=== PATIENT | female | born 2000 | race American Indian/Alaskan Native ===

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

== ENCOUNTER 2021-12-24 17:22 | Emergency (ER) | payer OTHER ==
[2021-12-24] MEDS ORDERED: SODIUM CHLORIDE 0.9% 1000 ML IV SOLN IV ONE (22:49)
[2021-12-24] MEDS ORDERED: ONDANSETRON 4 MG/2 ML INJ IV ONE (22:49)
[2021-12-24] MEDS ORDERED: MORPHINE 4 MG/1 ML INJ IV STA (22:51)
[2021-12-24] MEDS ORDERED: HYOSCYAMINE SUBL 0.125 MG TAB SL ONE (22:51)
--- NOTE | 2021-12-24 22:57 | Emergency Department Report ---
ED N/V/D HPI - General Chief complaint: Nausea/Vomiting/Diarrhea Stated complaint: VOMITING/NAUSEA/DIARRHEA Time Seen by Provider: 12/24/21 22:45 Source: patient Mode of arrival: Ambulatory Limitations: No Limitations - History of Present Illness Initial comments: 21-year-old -[place] female with no significant past medical history presents emerged department complaining of a 1+ week history of progressively worsening abdominal discomfort to the lower abdomen and mid mid gastric area associated with nausea and vomiting but no diarrhea [place] what appears to be constipation as he is not having bowel movements since the onset. She states that she has not been ingesting a lot of food which also may be the culprit. No fever, chills, sweats, hemoptysis, hematemesis hematochezia, dysuria, hematuria. MD complaint: nausea, vomiting, abdominal pain -: Gradual Description of Vomiting: food contents, watery Severity: mild Quality: cramping, aching Consistency: constant Improves with: none Worsens with: none Associated Symptoms: denies other symptoms, fever/chills, loss of appetite, malaise, nausea/vomiting. denies: chest pain, cough, rash, dysuria - Related Data Previous Rx's Medication Instructions Recorded Last Taken Type Famotidine [Pepcid] 20 mg PO BID #30 tablet 05/01/18 Unknown Rx Ibuprofen [Motrin] 600 mg PO Q8H PRN #30 tablet 05/01/18 Unknown Rx Ondansetron [Zofran TAB] 4 mg PO Q8HR PRN #20 tablet 05/01/18 Unknown Rx Sulfamethoxazole/Trimethoprim 1 each PO BID #14 tablet 05/01/18 Unknown Rx [Bactrim DS TAB] Promethazine [Phenergan] 25 mg PO Q6HR PRN #10 tab 09/03/18 Unknown Rx raNITIdine HCl [Acid Control] 150 mg PO BID 30 Days #60 tablet 09/03/18 Unknown Rx Hyoscyamine Subl [Levsin Sl 0.125 0.125 mg SL Q6HR PRN #20 tab 12/25/21 Unknown Rx TAB] Omeprazole 40 mg PO DAILY #30 12/25/21 Unknown Rx Ondansetron [Zofran ODT TAB] 8 mg PO Q12HR #14 tab.rapdis 12/25/21 Unknown Rx Allergies Allergy/AdvReac Type Severity Reaction Status Date / Time No Known Allergies Allergy Unverified 05/01/18 17:47 ED Review of Systems ROS: Stated complaint: VOMITING/NAUSEA/DIARRHEA Other details as noted in HPI Comment: All other systems reviewed and negative ED Past Medical Hx - Past Medical History Additional medical history: Hypotension, Gastritis - Social History Smoking Status: Never Smoker Substance Use Type: Alcohol, Marijuana - Medications Home Medications: Home Medications Medication Instructions Recorded Confirmed Last Taken Type Famotidine [Pepcid] 20 mg PO BID #30 tablet 05/01/18 Unknown Rx Ibuprofen [Motrin] 600 mg PO Q8H PRN #30 tablet 05/01/18 Unknown Rx Ondansetron [Zofran TAB] 4 mg PO Q8HR PRN #20 tablet 05/01/18 Unknown Rx Sulfamethoxazole/Trimethoprim 1 each PO BID #14 tablet 05/01/18 Unknown Rx [Bactrim DS TAB] Promethazine [Phenergan] 25 mg PO Q6HR PRN #10 tab 09/03/18 Unknown Rx raNITIdine HCl [Acid Control] 150 mg PO BID 30 Days #60 tablet 09/03/18 Unknown Rx Hyoscyamine Subl [Levsin Sl 0.125 0.125 mg SL Q6HR PRN #20 tab 12/25/21 Unknown Rx TAB] Omeprazole 40 mg PO DAILY #30 12/25/21 Unknown Rx Ondansetron [Zofran ODT TAB] 8 mg PO Q12HR #14 tab.rapdis 12/25/21 Unknown Rx ED Physical Exam - General Limitations: No Limitations General appearance: alert, in no apparent distress - Head Head exam: Present: atraumatic, normocephalic - Eye Eye exam: Present: normal appearance, PERRL, EOMI - ENT ENT exam: Present: mucous membranes moist - Neck Neck exam: Present: normal inspection - Respiratory Respiratory exam: Present: normal lung sounds bilaterally. Absent: respiratory distress - Cardiovascular Cardiovascular Exam: Present: regular rate, normal rhythm. Absent: systolic murmur, diastolic murmur, rubs, gallop - GI/Abdominal GI/Abdominal exam: Present: soft, tenderness, normal bowel sounds. Absent: guarding, hyperactive bowel sounds, hypoactive bowel sounds, organomegaly, mass - Extremities Exam Extremities exam: Present: normal inspection - Back Exam Back exam: Present: normal inspection - Neurological Exam Neurological exam: Present: alert, oriented X3 - Psychiatric Psychiatric exam: Present: normal affect, normal mood - Skin Skin exam: Present: warm, dry, intact, normal color. Absent: rash ED Course Vital Signs 12/24/21 12/25/21 18:11 02:41 Temperature 98.0 F Pulse Rate 97 H 52 L Respiratory 20 14 Rate Blood Pressure 147/92 105/59 [Right] O2 Sat by Pulse 99 100 Oximetry ED Medical Decision Making - Lab Data Result diagrams: 12/24/21 22:58 12/24/21 22:58 - Radiology Data Radiology results: report reviewed [facility] [address] [place] [address] XRay Report Signed Patient: DAVINA BARNES MR#: [id number] : 2000 Acct:[id number] Age/Sex: 21 / F ADM Date: 12/24/21 Loc: ED Attending Dr: Ordering Physician: KASSIDY VELA Date of Service: 12/25/21 Procedure(s): XR abd series w cxr 1V Accession Number(s): [id number] cc: KASSIDY VELA Fluoro Time In Minutes: XR abd series w cxr 1V INDICATION / CLINICAL INFORMATION: constipation abd pain COMPARISON: None available. TECHNIQUE: Flat and erect images of the abdomen with additional AP view of the chest. FINDINGS: Nonobstructive bowel gas pattern. No free air. No specific abnormality of the chest. IMPRESSION: 1. Nonobstructive bowel gas pattern. No acute findings within the chest. Signer Name: Ros French II, MD Signed: 12/25/2021 1:48 AM Workstation Name: [id number] Transcribed By: MEGA Dictated By: ROS FRENCH II, MD Electronically Authenticated By: ROS FRENCH II, MD Signed Date/Time: 12/25/21147 DD/ 4 TD/TT: Print Cancel - Medical Decision Making This patient presents with abdominal pain of unclear etiology. Their evaluation has not identified a emergent etiology for the abdominal pain. Specifically, given the very benign exam, normal laboratory studies, and lack of significant risk factors, I have a very low suspicion for appendicitis, ischemic bowel, bowel perforation, or any other life threatening disease. I have discussed with the patient the level of uncertainty with undifferentiated abdominal pain and clearly explained the need to follow-up as noted on the discharge instructions, or return to the Emergency Department immediately if the pain worsens, develops fever, persistent and uncontrollable vomiting, or for any new symptoms or concerns. I discussed with the patient that this presentation today for abdominal pain could represent a significant risk for an acute abdominal process. Although the tests in the ED were essentially normal, there is still a possibility of a process such as appendicitis, diverticulitis, cholecystitis, ulcer, early bowel obstruction, mesenteric ischemia, kidney stone, or even kidney infection which could subsequently cause disability or . The patient understands that they must return within 24 hours for a recheck or see their physician within 24 hours for re-exam due to the possibility of significant surgical or medical process. Critical care attestation.: If time is entered above; I have spent that time in minutes in the direct care of this critically ill patient, excluding procedure time. ED Disposition Clinical Impression: Abdominal pain, Nausea & vomiting Disposition: 01 HOME / SELF CARE / HOMELESS Is pt being admited?: No Does the pt Need Aspirin: No Condition: Stable Instructions: Abdominal Pain, Adult, Nausea and Vomiting, Adult Prescriptions: Hyoscyamine Subl [Levsin Sl 0.125 TAB] 0.125 mg SL Q6HR PRN #20 tab PRN Reason: abdominal cramps and spasms Omeprazole 40 mg PO DAILY #30 Ondansetron [Zofran ODT TAB] 8 mg PO Q12HR #14 tab.marisa Referrals: [facility] [Provider Group] - 3-5 Days [facility], [Primary Care Provider] - 3-5 Days
[2021-12-24 23:19] LABS: Bacteria,Urine 4+ /HPF (Negative); Bilirubin,Urine NEG (Negative); Blood,Urine NEG (Negative); Color,Urine Yellow (Yellow); Mucus,Urine 3+ /HPF; Urobilinogen,Urine < 2.0 mg/dL (<2.0)
[2021-12-25 00:04] LABS: Basophils % (Auto) 0.5 % (0.0-1.8); Eosinophils % (Auto) 0.6 % (0.0-4.3); Hematocrit 44.9 % (30.3-42.9); Hemoglobin 15.6 gm/dl (10.1-14.3); Lymphocytes # (Auto) 2.4 K/mm3 (1.2-5.4); Lymphocytes % (Auto) 30.7 % (13.4-35.0); Mean Corpuscular HGB Conc 35 % (30-34); Mean Corpuscular Volume 93 fl (79-97); Monocytes # (Auto) 0.6 K/mm3 (0.0-0.8); Monocytes % (Auto) 7.7 % (0.0-7.3); Platelet Count 272 K/mm3 (140-440); Red Blood Count 4.84 M/mm3 (3.65-5.03); Red Cell Distribution Width 13.4 % (13.2-15.2)
[2021-12-25 00:11] LABS: Alanine Aminotransferase 14 units/L (7-56); Albumin 4.5 g/dL (3.9-5); Blood Urea Nitrogen 7 mg/dL (7-17); Calcium 9.3 mg/dL (8.4-10.2); Hemolysis Index 24
[2021-12-25 00:27] LABS: BUN/Creatinine Ratio 12
--- NOTE | 2021-12-25 01:52 | XRay Report ---
XR abd series w cxr 1V INDICATION / CLINICAL INFORMATION: constipation abd pain COMPARISON: None available. TECHNIQUE: Flat and erect images of the abdomen with additional AP view of the chest. FINDINGS: Nonobstructive bowel gas pattern. No free air. No specific abnormality of the chest. IMPRESSION: 1. Nonobstructive bowel gas pattern. No acute findings within the chest. Signer Name: Ion French II, MD Signed: 12/25/2021 1:48 AM Workstation Name: [id number]
[2021-12-25 02:42] VITALS: BP 105/59
== END 2021-12-25 02:45 | disposition home or self-care (01) ==
LOC: ED 17:22
DX: R10.9 Unspecified abdominal pain (principal); R11.2 Nausea with vomiting, unspecified; F10.20 Alcohol dependence, uncomplicated; F12.90 Cannabis use, unspecified, uncomplicated
CPT/HCPCS: 36415; 74022; 80053; 81001; 83690; 84703; 85025; 87086; 96374; 96375; 99284; J2270; J2405; J7030; Q0162

== ENCOUNTER 2022-02-14 20:13 | Emergency (ER) | payer OTHER ==
[2022-02-14] MEDS ORDERED: ONDANSETRON 4 MG ODT TAB PO ONE (20:39)
[2022-02-14 21:22] LABS: Basophils # (Auto) 0.1 K/mm3 (0.0-0.1); Basophils % (Auto) 0.6 % (0.0-1.8); Eosinophils % (Auto) 0.4 % (0.0-4.3); Hematocrit 46.6 % (30.3-42.9); Hemoglobin 16.2 gm/dl (10.1-14.3); Lymphocytes # (Auto) 3.1 K/mm3 (1.2-5.4); Lymphocytes % (Auto) 31.7 % (13.4-35.0); Mean Corpuscular HGB Conc 35 % (30-34); Mean Corpuscular Volume 91 fl (79-97); Monocytes # (Auto) 0.6 K/mm3 (0.0-0.8); Monocytes % (Auto) 6.1 % (0.0-7.3); Platelet Count 236 K/mm3 (140-440); Red Blood Count 5.14 M/mm3 (3.65-5.03); Red Cell Distribution Width 13.4 % (13.2-15.2)
[2022-02-14 21:39] LABS: Bacteria,Urine 4+ /HPF (Negative); Bilirubin,Urine NEG (Negative); Blood,Urine MOD (Negative); Color,Urine Amber (Yellow); Mucus,Urine 2+ /HPF; Protein,Urine <15 mg/dL mg/dL (Negative)
[2022-02-14 21:40] LABS: Alanine Aminotransferase 11 units/L (7-56); Albumin 4.8 g/dL (3.9-5); Blood Urea Nitrogen 8 mg/dL (7-17); Calcium 10.3 mg/dL (8.4-10.2); Hemolysis Index 28
[2022-02-14 21:45] LABS: BUN/Creatinine Ratio 13
[2022-02-15] MEDS ORDERED: SODIUM CHLORIDE 0.9% 1000 ML 1,000 ML IV ONE (00:59)
[2022-02-15] MEDS ORDERED: ONDANSETRON 4 MG/2 ML INJ IV ONE (01:00)
[2022-02-15] MEDS ORDERED: KETOROLAC 30 MG/1 ML INJ IV ONE (01:00)
--- NOTE | 2022-02-15 01:05 | Emergency Department Report ---
ED Abdominal Pain HPI - General Chief Complaint: Abdominal Pain Stated Complaint: CHEST,BACK,ABD PAIN Time Seen by Provider: 02/15/22 00:52 Source: patient Mode of arrival: Ambulatory Limitations: No Limitations - History of Present Illness Initial Comments: Is a 21-year-old female who presents for abdominal pain radiating to bilateral flanks with nausea vomiting x6 days. Patient states intermittent nausea vomiting. Pain radiates to right lateral anterior chest wall with deep cough ,cough is nonproductive. Symptoms are exacerbated by p.o. intake. Symptoms are relieved by nothing tried. Patient denies urinary frequency no dysuria no fever no chills no hematuria. There is bilateral flank tenderness. Patient denies fever. Last p.o. intake was yesterday. MD Complaint: abdominal pain - Related Data Previous Rx's Medication Instructions Recorded Last Taken Type Famotidine [Pepcid] 20 mg PO BID #30 tablet 05/01/18 Unknown Rx Ibuprofen [Motrin] 600 mg PO Q8H PRN #30 tablet 05/01/18 Unknown Rx Ondansetron [Zofran TAB] 4 mg PO Q8HR PRN #20 tablet 05/01/18 Unknown Rx Sulfamethoxazole/Trimethoprim 1 each PO BID #14 tablet 05/01/18 Unknown Rx [Bactrim DS TAB] Promethazine [Phenergan] 25 mg PO Q6HR PRN #10 tab 09/03/18 Unknown Rx raNITIdine HCl [Acid Control] 150 mg PO BID 30 Days #60 tablet 09/03/18 Unknown Rx Hyoscyamine Subl [Levsin Sl 0.125 0.125 mg SL Q6HR PRN #20 tab 12/25/21 Unknown Rx TAB] Omeprazole 40 mg PO DAILY #30 12/25/21 Unknown Rx Ondansetron [Zofran ODT TAB] 8 mg PO Q12HR #14 tab.rapdis 12/25/21 Unknown Rx cephALEXin [Keflex] 500 mg PO BID 7 Days #14 cap 02/15/22 Unknown Rx Allergies Allergy/AdvReac Type Severity Reaction Status Date / Time No Known Allergies Allergy Unverified 05/01/18 17:47 ED Review of Systems ROS: Stated complaint: CHEST,BACK,ABD PAIN Other details as noted in HPI Constitutional: malaise Eyes: denies: eye pain, eye discharge, vision change ENT: denies: ear pain, throat pain Respiratory: denies: cough, shortness of breath, wheezing Cardiovascular: chest pain (Right anterior chest wall). denies: palpitations Endocrine: no symptoms reported Gastrointestinal: abdominal pain, nausea, vomiting. denies: diarrhea, constipation, melena Genitourinary: frequency. denies: urgency, dysuria, hematuria, discharge, abnormal menses, dyspareunia Musculoskeletal: back pain (Bilateral flank pain) Skin: denies: rash, lesions Neurological: denies: headache, weakness, numbness, paresthesias, confusion, vertigo Psychiatric: denies: anxiety, depression Hematological/Lymphatic: denies: easy bleeding, easy bruising ED Past Medical Hx - Past Medical History Additional medical history: Hypotension, Gastritis - Social History Smoking Status: Never Smoker Substance Use Type: Alcohol, Marijuana - Medications Home Medications: Home Medications Medication Instructions Recorded Confirmed Last Taken Type Famotidine [Pepcid] 20 mg PO BID #30 tablet 05/01/18 Unknown Rx Ibuprofen [Motrin] 600 mg PO Q8H PRN #30 tablet 05/01/18 Unknown Rx Ondansetron [Zofran TAB] 4 mg PO Q8HR PRN #20 tablet 05/01/18 Unknown Rx Sulfamethoxazole/Trimethoprim 1 each PO BID #14 tablet 05/01/18 Unknown Rx [Bactrim DS TAB] Promethazine [Phenergan] 25 mg PO Q6HR PRN #10 tab 09/03/18 Unknown Rx raNITIdine HCl [Acid Control] 150 mg PO BID 30 Days #60 tablet 09/03/18 Unknown Rx Hyoscyamine Subl [Levsin Sl 0.125 0.125 mg SL Q6HR PRN #20 tab 12/25/21 Unknown Rx TAB] Omeprazole 40 mg PO DAILY #30 12/25/21 Unknown Rx Ondansetron [Zofran ODT TAB] 8 mg PO Q12HR #14 tab.rapdis 12/25/21 Unknown Rx cephALEXin [Keflex] 500 mg PO BID 7 Days #14 cap 02/15/22 Unknown Rx ED Physical Exam - General Limitations: No Limitations General appearance: alert, in no apparent distress - Head Head exam: Present: normocephalic, normal inspection - Eye Eye exam: Present: EOMI Pupils: Present: normal accommodation - ENT ENT exam: Present: mucous membranes moist - Neck Neck exam: Present: normal inspection, full ROM. Absent: tenderness, l ymphadenopathy - Respiratory Respiratory exam: Present: normal lung sounds bilaterally, chest wall tenderness (Right anterior chest wall tenderness to deep palpation there is no ecchymosis no bruising no crepitus no step-off no flail chest). Absent: respiratory distress, wheezes, rales, rhonchi, stridor, decreased breath sounds, prolonged expiratory - Cardiovascular Cardiovascular Exam: Present: regular rate, normal rhythm, normal heart sounds. Absent: systolic murmur, diastolic murmur, rubs, gallop - GI/Abdominal GI/Abdominal exam: Present: soft, tenderness (Bilateral flank), normal bowel sounds. Absent: distended, guarding, rebound, rigid, bruit, hernia - Rectal Rectal exam: Present: deferred - Extremities Exam Extremities exam: Present: normal inspection, full ROM, normal capillary refill. Absent: tenderness - Back Exam Back exam: Present: normal inspection, full ROM, CVA tenderness (R), CVA tenderness (L) - Neurological Exam Neurological exam: Present: alert, oriented X3, CN II-XII intact, normal gait - Expanded Neurological Exam Expanded Patient oriented to: Present: person, place, time Speech: Present: fluid speech Motor strength exam: RUE: 5, LUE: 5, RLE: 5, LLE: 5 Best Eye Response (Cari): (4) open spontaneously Best Motor Response ([place]): (6) obeys commands Best Verbal Response (Cari): (5) oriented Cari Total: 15 - Psychiatric Psychiatric exam: Present: normal affect, normal mood - Skin Skin exam: Present: warm, dry, intact, normal color. Absent: rash ED Course Vital Signs 02/14/22 20:28 Temperature 98.8 F Pulse Rate 64 Respiratory 16 Rate Blood Pressure 128/89 O2 Sat by Pulse 99 Oximetry ED Medical Decision Making - Lab Data Result diagrams: 02/14/22 20:44 02/14/22 20:44 Labs 02/14/22 02/14/22 02/14/22 20:44 20:44 20:44 WBC 9.6 RBC 5.14 H Hgb 16.2 H Hct 46.6 H MCV 91 MCH 32 MCHC 35 H RDW 13.4 Plt Count 236 Lymph % (Auto) 31.7 [place] % (Auto) 6.1 Eos % (Auto) 0.4 Baso % (Auto) 0.6 Lymph # (Auto) 3.1 [place] # (Auto) 0.6 Eos # (Auto) 0.0 Baso # (Auto) 0.1 Seg Neutrophils % 61.2 Seg Neutrophils # 5.9 Sodium 133 L Potassium 3.6 Chloride 95.1 L Carbon Dioxide 23 Anion Gap 19 BUN 8 Creatinine 0.6 Estimated GFR > 60 BUN/Creatinine Ratio 13 Glucose 100 Calcium 10.3 H Total Bilirubin 1.20 AST 15 ALT 11 Alkaline Phosphatase 64 Total Protein 7.5 Albumin 4.8 Albumin/Globulin Ratio 1.8 HCG, Qual Negative Urine Color Urine Turbidity Urine pH Ur Specific Jadwin Urine Protein Urine Glucose (UA) Urine Ketones Urine Blood Urine Nitrite Urine Bilirubin Urine Urobilinogen Ur Leukocyte Esterase Urine WBC (Auto) Urine RBC (Auto) U Epithel Cells (Auto) Urine Bacteria (Auto) Urine Mucus Urine Yeast (Budding) 02/14/22 Unknown WBC RBC Hgb Hct MCV MCH MCHC RDW Plt Count Lymph % (Auto) [place] % (Auto) Eos % (Auto) Baso % (Auto) Lymph # (Auto) [place] # (Auto) Eos # (Auto) Baso # (Auto) Seg Neutrophils % Seg Neutrophils # Sodium Potassium Chloride Carbon Dioxide Anion Gap BUN Creatinine Estimated GFR BUN/Creatinine Ratio Glucose Calcium Total Bilirubin AST ALT Alkaline Phosphatase Total Protein Albumin Albumin/Globulin Ratio HCG, Qual Urine Color [place] Urine Turbidity Cloudy Urine pH 7.0 Ur Specific Jadwin 1.019 Urine Protein <15 mg/dl Urine Glucose (UA) Neg Urine Ketones Neg Urine Blood Mod Urine Nitrite Neg Urine Bilirubin Neg Urine Urobilinogen 4.0 Ur Leukocyte Esterase Tr Urine WBC (Auto) 5.0 Urine RBC (Auto) 23.0 U Epithel Cells (Auto) 2.0 Urine Bacteria (Auto) 4+ Urine Mucus 2+ Urine Yeast (Budding) 3+ - EKG Data -: EKG Interpreted by Ak EKG shows normal: sinus rhythm, axis, intervals, QRS complexes, ST-T waves Rate: normal - EKG Data When compared to previous EKG there are: previous EKG unavailable Interpretation: normal EKG (NSR NSTEMI interpreted by ed attending. ) - Radiology Data Radiology results: report reviewed, image reviewed CT ABDOMEN AND PELVIS WITHOUT CONTRAST INDICATION: abd pain r/o renal stone. TECHNIQUE: Axial CT images were obtained through the abdomen and pelvis without IV contrast. All CT scans at this location are performed using CT dose reduction for ALARA by means of automated exposure control. COMPARISON: None available. FINDINGS: LOWER CHEST: No significant abnormality. LIVER: No significant abnormality. GALLBLADDER: No significant abnormality. BILE DUCTS: No significant abnormality. PANCREAS: No significant abnormality. SPLEEN: No significant abnormality. ADRENALS: No significant abnormality. RIGHT KIDNEY and URETER: No significant abnormality. LEFT KIDNEY and URETER: No significant abnormality. STOMACH and SMALL BOWEL: No significant abnormality. COLON: No significant abnormality. APPENDIX: Normal. PERITONEUM: No free fluid. No free air. No fluid collection. LYMPH NODES: No significant adenopathy. AORTA and ARTERIES: No significant abnormality. IVC and VEINS: No significant abnormality. URINARY BLADDER: No significant abnormality. REPRODUCTIVE ORGANS: No significant abnormality. ADDITIONAL FINDINGS: None. SKELETAL SYSTEM: No significant abnormality. IMPRESSION: 1. No significant abnormality. Signer Name: Moreno Estes MD Signed: 02/15/2022 2:53 AM Workstation Name: [id number] Transcribed By: SURESH Dictated By: Moreno Estes MD Electronically Authenticated By: Moreno Estes MD Signed Date/Time: 02/15/22252 DD/ 1 TD/TT: Print - Medical Decision Making Patient currently tolerating p.o. intake without nausea or vomiting. Advises symptoms are improved CT abdomen pelvis no renal stones no obstruction, UA noted for bacteria RBCs, yeast mild leukocytes plan DC home with prescriptions. Continue to hydrate as directed. Follow-up with your primary care doctor in 2 to 3 days. Patient verbalized agreement and understanding of discharge plan. Patient DC'd home in stable condition at this time. Critical care attestation.: If time is entered above; I have spent that time in minutes in the direct care of this critically ill patient, excluding procedure time. ED Disposition Clinical Impression: UTI (urinary tract infection) Qualifiers: Urinary tract infection type: acute cystitis Hematuria presence: without hematuria Qualified Code(s): N30.00 - Acute cystitis without hematuria Disposition: HOME / SELF CARE / HOMELESS Is pt being admited?: No Does the pt Need Aspirin: No Condition: Stable Instructions: Abdominal Pain (ED), Urinary Tract Infection, Adult Additional Instructions: Take medications as prescribed, hydrate as directed. Follow-up with your doctor in 2 to 3 days. Return to emergency department should symptoms worsen. Prescriptions: cephALEXin [Keflex] 500 mg PO BID 7 Days #14 cap Referrals: RONALD TREVIZO MD [Staff Physician] - 3-5 Days Forms: Work/School Release Form(ED) Time of Disposition: 03:27
[2022-02-15] MEDS ORDERED: METOCLOPRAMIDE 10 MG/2 ML INJ IV ONE (01:59)
[2022-02-15] MEDS ORDERED: diphenhydrAMINE 50 MG/ML VIAL IV ONE (01:59)
[2022-02-15] MEDS ORDERED: MORPHINE 4 MG/1 ML INJ IV ONE (01:59)
--- NOTE | 2022-02-15 02:58 | Cat Scan Report ---
CT ABDOMEN AND PELVIS WITHOUT CONTRAST INDICATION: abd pain r/o renal stone. TECHNIQUE: Axial CT images were obtained through the abdomen and pelvis without IV contrast. All CT scans at [facility] location are performed using CT dose reduction for ALARA by means of automated exposure control. COMPARISON: None available. FINDINGS: LOWER CHEST: No significant abnormality. LIVER: No significant abnormality. GALLBLADDER: No significant abnormality. BILE DUCTS: No significant abnormality. PANCREAS: No significant abnormality. SPLEEN: No significant abnormality. ADRENALS: No significant abnormality. RIGHT KIDNEY and URETER: No significant abnormality. LEFT KIDNEY and URETER: No significant abnormality. STOMACH and SMALL BOWEL: No significant abnormality. COLON: No significant abnormality. APPENDIX: Normal. PERITONEUM: No free fluid. No free air. No fluid collection. LYMPH NODES: No significant adenopathy. AORTA and ARTERIES: No significant abnormality. IVC and VEINS: No significant abnormality. URINARY BLADDER: No significant abnormality. REPRODUCTIVE ORGANS: No significant abnormality. ADDITIONAL FINDINGS: None. SKELETAL SYSTEM: No significant abnormality. IMPRESSION: 1. No significant abnormality. Signer Name: Moreno Estes MD Signed: 02/15/2022 2:53 AM Workstation Name: [id number]
[2022-02-15] MEDS ORDERED: cephALEXin 500 MG CAP PO ONE (03:20)
[2022-02-15] MEDS ORDERED: FLUCONAZOLE 200 MG TAB PO ONE (03:23)
[2022-02-15 04:21] VITALS: BP 120/65
--- NOTE | 2022-02-16 12:05 | Electrocardiograph Report ---
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
== END 2022-02-15 04:21 | disposition home or self-care (01) ==
LOC: ED 20:13
DX: N39.0 Urinary tract infection, site not specified (principal); F10.20 Alcohol dependence, uncomplicated; F12.90 Cannabis use, unspecified, uncomplicated
CPT/HCPCS: 36415; 74176; 80053; 81001; 84703; 85025; 93005; 96361; 96374; 96375; 99284; J1200; J1885; J2270; J2405; J2765; J7030; J3490; Q0162